=== PATIENT | male | born 2005 | race Asian ===

== ENCOUNTER 2025-04-15 12:58 | Emergency (ER) | payer SELFPAY ==
[2025-04-15] MEDS ORDERED: Ibuprofen 200 MG TAB ONE (13:46)
== END 2025-04-15 15:05 | disposition home or self-care (01) ==
LOC: CSHERS 12:58
DX: S42.022A Displaced fracture of shaft of left clavicle, initial encounter for closed fracture (principal); V87.8XXA Person injured in other specified noncollision transport accidents involving motor vehicle (traffic), initial encounter
CPT/HCPCS: 99284